=== PATIENT | male | born 1935 | race Caucasian/White ===

== ENCOUNTER 2020-07-16 02:23 | Inpatient (IN) ==
[2020-07-16 03:03] LABS: Basophils % 0.6 % (0.0-0.8); Eosinophils # 0.3 10*3/uL (0.0-0.87); Eosinophils % 3.9 % (0.00-10.9); Hematocrit 46.2 VOL% (42.0-52.0); Hemoglobin 15.1 GM/DL (14.0-18.0); Immature Granulocytes % 0.3 %; Immature Granulocytes Absolute 0.02 #; Lymphocytes # 2.1 10*3/uL (1.4-4.0); Lymphocytes % 32.4 % (21.2-54.2); Mean Corpuscular HGB Conc 32.7 GM/DL (32-36); Mean Corpuscular Volume 95.3 FL (87-102); Mean Platelet Volume 11.8 FL (9.6-12.0); Monocytes % 13.1 % (1.7-12.7); Neutrophils % 49.7 % (38.7-73.9); Platelet Count 189 T/CUMM (130-400); Red Blood Count 4.85 MC/CUMM (3.8-5.5); Red Cell Distribution Width 14.4 % (9.3-17.3); White Blood Count 6.4 T/CUMM (4-12)
[2020-07-16 03:13] LABS: Alanine Aminotransferase 32 U/L (16-61); Albumin 3.8 G/DL (3.4-5.0); Alkaline Phosphatase 113 U/L (45-117); Aspartate Amino Transferase 20 U/L (0-37); Bilirubin,Total < 0.39 MG/DL (0.2-1.0); Blood Urea Nitrogen 13 MG/DL (7-18); Calcium 8.8 MG/DL (8.5-10.1); Carbon Dioxide 27 MMOL/L (21-32); Estimated Glom Filtration Rate 107 ML/MIN; Glucose 134 MG/DL (74-106); Osmolality,Calculated 276.7 MOS/KG (273-304); Potassium 4.1 MMOL/L (3.5-5.1); Sodium 138 MMOL/L (136-145); Total Protein 6.6 G/DL (6.4-8.2)
[2020-07-16] MEDS ORDERED: ENOXAPARIN 30 MG/0.3 ML SYRINGE SUBCUT STA ×2 (03:27→03:28)
[2020-07-16] MEDS ORDERED: ENOXAPARIN 100 MG/ML SYRINGE SUBCUT ONE (03:31)
[2020-07-16 03:32] LABS: INR 1.2; PT Patient Result 13.1 SECS (9.8-11.9); Partial Thromboplastin Time 29.9 SECS (23.9-33.8)
[2020-07-16] MEDS ORDERED: DEXTROSE 50% 25 GM/50 ML VIAL IV PRN (04:31)
[2020-07-16] MEDS ORDERED: ACETAMINOPHEN 325 MG TABLET PO PRN (04:31)
[2020-07-16] MEDS ORDERED: ONDANSETRON 4 MG/2 ML VIAL IV PRN (04:31)
[2020-07-16] MEDS ORDERED: NICOTINE 21 MG/24 HR PATCH TRANSDERM PRN (04:31)
[2020-07-16] MEDS ORDERED: MORPHINE 4 MG/1 ML VIAL IV PRN (04:31)
[2020-07-16] MEDS ORDERED: ALBUTEROL/IPRATROPIUM 3 ML NEB RESP TX PRN (04:31)
[2020-07-16] MEDS ORDERED: hydrALAZINE 20 MG/1 ML VIAL IV PRN ×2 (04:31→05:10)
[2020-07-16] MEDS ORDERED: guaiFENesin/DM ER 600-30 MG TABLET PO PRN (04:31)
[2020-07-16] MEDS ORDERED: diphenhydrAMINE CAP 25 MG CAPSULE PO PRN (04:31)
[2020-07-16] MEDS ORDERED: GLUCAGON 1 MG VIAL IM PRN (04:31)
[2020-07-16] MEDS ORDERED: traZODone 50 MG TABLET PO PRN (04:31)
[2020-07-16 05:26] LABS: Risk Ratio 5.28; VLDL CHOLESTEROL 60.6 MG/DL
[2020-07-16] MEDS ORDERED: ASPIRIN EC 325 MG TABLET PO SCH (09:30)
[2020-07-16] MEDS: ROSUVASTATIN 10 MG TABLET PO SCH (09:46)
[2020-07-16] MEDS: lisinopriL 20 MG TABLET PO SCH (09:46)
[2020-07-16] MEDS: METOPROLOL SUCCINATE XL 50 MG TABLET PO SCH (09:47)
[2020-07-16] MEDS ORDERED: DIAZEPAM 5 MG TABLET PO ONE (11:12)
[2020-07-16] MEDS ORDERED: diphenhydrAMINE CAP 25 MG CAPSULE PO ONE (11:12)
[2020-07-16] MEDS ORDERED: SODIUM CHLORIDE 0.9% 1,000 ML IV SCH (11:30)
[2020-07-16 12:14] LABS: Troponin I 0.153 NG/ML (0.00-0.045)
[2020-07-16] MEDS ORDERED: LIDOCAINE 1% 20 ML VIAL ONE (15:53)
[2020-07-16] MEDS ORDERED: HYDROmorphone 2 MG/1 ML VIAL ONE (15:53)
[2020-07-16] MEDS ORDERED: MIDAZOLAM 2 MG/2 ML VIAL ONE (15:53)
[2020-07-16] MEDS ORDERED: fentaNYL 100 MCG/2 ML VIAL ONE ×2 (15:57→18:02)
[2020-07-16] MEDS ORDERED: HEPARIN 5,000 UNIT/1 ML VIAL ONE ×2 (16:45→17:10)
[2020-07-16] MEDS ORDERED: TIROFIBAN 5,000 MCG/100 ML PREMIX IV ONE (16:46)
[2020-07-16] MEDS ORDERED: NITROGLYCERIN SL 0.4 MG TABLET SL ONE (17:34)
[2020-07-16] MEDS ORDERED: NIFEdipine 10 MG CAPSULE PO ONE (17:36)
[2020-07-16] MEDS ORDERED: TICAGRELOR 90 MG TABLET ONE (18:29)
[2020-07-16] MEDS ORDERED: TIROFIBAN 5,000 MCG/100 ML PREMIX IV SCH (19:00)
[2020-07-16] MEDS: TICAGRELOR 90 MG TABLET PO SCH (20:38)
[2020-07-16 20:47] LABS: Troponin I 0.417 NG/ML (0.00-0.045)
[2020-07-16 22:23] LABS: Bilirubin,Urine Negative (Negative); Blood, Urine Negative (Negative); Glucose,Urine (UA) Negative (Negative); Ketones,Urine Negative (Negative); Nitrite,Urine Negative (Negative); Protein,Urine Negative; RBC,Urine 1 /HPF (0-4); Urine Appearance CLEAR (Clear); Urine Color Colorless (Yellow); Urine Urobilinogen < 2.0 EU/DL (0.2-1.0); WBC,Urine <1 /HPF (0-6)
[2020-07-16] MEDS: SODIUM CHLORIDE 0.9% 1,000 ML IV SCH (23:30)
[2020-07-17 04:17] LABS: Basophils % 0.3 % (0.0-0.8); Eosinophils # 0.1 10*3/uL (0.0-0.87); Eosinophils % 0.5 % (0.00-10.9); Hematocrit 45.4 VOL% (42.0-52.0); Hemoglobin 14.7 GM/DL (14.0-18.0); Immature Granulocytes % 0.3 %; Immature Granulocytes Absolute 0.04 #; Lymphocytes # 1.7 10*3/uL (1.4-4.0); Lymphocytes % 14.3 % (21.2-54.2); Mean Corpuscular HGB Conc 32.4 GM/DL (32-36); Mean Corpuscular Volume 95.6 FL (87-102); Mean Platelet Volume 11.3 FL (9.6-12.0); Monocytes % 9.1 % (1.7-12.7); Neutrophils % 75.5 % (38.7-73.9); Platelet Count 213 T/CUMM (130-400); Red Blood Count 4.75 MC/CUMM (3.8-5.5); Red Cell Distribution Width 14.5 % (9.3-17.3); White Blood Count 11.7 T/CUMM (4-12)
[2020-07-17 04:46] LABS: CKMB % 8.1 %
[2020-07-17 04:48] LABS: Calcium 8.7 MG/DL (8.5-10.1); Osmolality,Calculated 270.8 MOS/KG (273-304)
[2020-07-17 04:51] LABS: Troponin I 8.09 NG/ML (0.00-0.045)
[2020-07-17] MEDS: METOPROLOL SUCCINATE XL 50 MG TABLET PO SCH (08:57)
[2020-07-17] MEDS: ASPIRIN CHEW 81 MG TABLET PO SCH (09:00)
[2020-07-17] MEDS: TICAGRELOR 90 MG TABLET PO SCH ×2 (09:00→20:09)
[2020-07-17] MEDS: lisinopriL 20 MG TABLET PO SCH (09:02)
[2020-07-17 12:32] LABS: CKMB % 5.8 %
[2020-07-17 12:33] LABS: Troponin I 7.51 NG/ML (0.00-0.045)
[2020-07-17] MEDS: SODIUM CHLORIDE 0.9% 1,000 ML IV SCH ×2 (18:39→19:30)
[2020-07-18 05:15] LABS: Basophils % 0.4 % (0.0-0.8); Eosinophils # 0.3 10*3/uL (0.0-0.87); Eosinophils % 3.6 % (0.00-10.9); Hematocrit 37.2 VOL% (42.0-52.0); Immature Granulocytes % 0.1 %; Immature Granulocytes Absolute 0.01 #; Lymphocytes # 2.1 10*3/uL (1.4-4.0); Lymphocytes % 27.4 % (21.2-54.2); Mean Corpuscular HGB Conc 33.9 GM/DL (32-36); Mean Corpuscular Volume 93.2 FL (87-102); Monocytes % 13.8 % (1.7-12.7); Neutrophils % 54.7 % (38.7-73.9); Red Blood Count 3.99 MC/CUMM (3.8-5.5); Red Cell Distribution Width 14.6 % (9.3-17.3)
[2020-07-18 05:18] LABS: Calcium 8.4 MG/DL (8.5-10.1); Osmolality,Calculated 276.5 MOS/KG (273-304); Potassium 3.4 MMOL/L (3.5-5.1)
[2020-07-18 05:23] LABS: Hemoglobin 12.6 GM/DL (14.0-18.0); Platelet Count 148 T/CUMM (130-400); White Blood Count 7.5 T/CUMM (4-12)
[2020-07-18 05:41] LABS: Hypochromasia Slight
[2020-07-18 05:42] LABS: Microcytosis 1+; Ovalocytes Slight
[2020-07-18] MEDS ORDERED: POTASSIUM CHLORIDE 20 MEQ TABLET PO ONE (07:21)
[2020-07-18] MEDS: ASPIRIN CHEW 81 MG TABLET PO SCH (11:42)
[2020-07-18] MEDS: METOPROLOL SUCCINATE XL 50 MG TABLET PO SCH (11:43)
[2020-07-18] MEDS: TICAGRELOR 90 MG TABLET PO SCH (11:43)
[2020-07-18] MEDS: lisinopriL 20 MG TABLET PO SCH (11:43)
[2020-07-18] MEDS: ROSUVASTATIN 10 MG TABLET PO SCH (12:13)
[2020-07-18 12:42] VITALS: BP 138/70
== END 2020-07-18 17:06 | disposition home health service (06) | DRG 247 ==
LOC: EDBD → EDUNIT# → N.EDINP 02:23 → N.ED 02:23 → N.4E 05:19 → N.TELEN 19:01
PROVIDERS: ADMIT Internal Medicine; ATTEND Internal Medicine